=== PATIENT | female | born 1975 ===

== ENCOUNTER 2020-09-22 13:05 | Day surgery (SDC) | payer OTHER ==
[~2020-09-22] VITALS: Ht 152.4 cm; Wt 62.9 kg
[2020-09-22] MEDS ORDERED: LO LOESTRIN FE1 TAB PO (13:48)
[2020-09-22] MEDS ORDERED: FLEXERIL 1010 MG/TAB PO (13:48)
[2020-09-22 13:51] VITALS: BP 127/70; PULSE 89; TEMP 99.2
[2020-09-22 14:50] VITALS: BP 109/56; PULSE 88; TEMP 97.9
[2020-09-22 15:05] VITALS: BP 119/56; PULSE 83
[2020-09-22 15:20] VITALS: BP 118/77; PULSE 95
[2020-09-22 15:35] VITALS: BP 111/61; PULSE 88
[2020-09-22 15:50] VITALS: BP 121/78; PULSE 86
--- NOTE | 2020-09-22 16:12 | NUR ---
1450 PATIENT ARRIVES TO [facility] VIA CART. PATIENT AMBULATED TO CHAIR WITH SBA. PATIENT'S SPOUSE AT CHAIRSIDE. VSS. [facility] OF PATIENT STARTED AT THIS TIME. WARM BLANKET GIVEN FOR COMFORT. PATIENT TAKING WATER PO. REQUESTS PUDDING AND APPLE SAUCE. 1505 PATIENT USED VISCOUS LIDOCAINE TO THROAT FOR PAIN. PATIENT WAS ABLE TO TAKE PUDDING AND APPLE SAUCE PO. REPORTS IMPROVEMENT IN PAIN AFTER VISCOUS LIDOCAINE. VSS. DENIES COMPLAINT. 1510 DR. NELSON IN ROOM SPEAKING WITH PATIENT. 1520 PATIENT DENIES COMPLAINT. VSS. 1535 VSS. DENIES COMPLAUINT. 1550 IV D/C'D. CATH INTACT. TOLEATED WELL. DISCHARGE INSTRUCTIONS GIVEN IN WRITING AND VERBALLY TO PATIENT AND SPOUSE. BOTH VERBALIZED UNDERSTANDING. 1600 PATIENT D/C'D TO POV VIA WHEEL CHAIR WITH SPOUSE.
== END 2020-09-22 16:18 | disposition home or self-care (01) ==
LOC: SDCO 13:05
DX: R13.10 Dysphagia, unspecified (principal); M54.2 Cervicalgia; F17.210 Nicotine dependence, cigarettes, uncomplicated
CPT/HCPCS: J2704; J7030